=== PATIENT | female | born 1985 | race Two or more races ===

== ENCOUNTER 2023-03-09 22:09 | Emergency (ER) | payer BC ==
[~2023-03-09] VITALS: Ht 170.2 cm; Wt 124.3 kg
[2023-03-09] MEDS ORDERED: VITAMIN D210 MCG (22:20)
[2023-03-09] MEDS ORDERED: TIROSINT75 MCG PO (22:20)
[2023-03-10 01:55] LABS: PH,URINE 7.5 (5.0-8.0); URINE APPEARANCE Cloudy; URINE BILIRRUBIN Negative (NEGATIVE); URINE COLOR Yellow; URINE GLUCOSE Negative (NEGATIVE); URINE LEUKOCYTE Large; URINE NITRATE Negative; URINE PROTEIN Negative (NEGATIVE); URINE UROBILINOGEN 0.2 E.U./dl
[2023-03-10 01:58] LABS: URINE EPITHELIAL CELLS 63.6 uL (0.0-38.8); URINE RBC 31.7 uL (0.0-20.8); URINE WBC 236.9 uL (0.0-23.2)
[2023-03-10 02:06] LABS: URINE BLOOD TRACES
[2023-03-10 02:21] LABS: HEMATOCRIT 40.2 % (36.0-45.00); HEMOGLOBIN 13.5 g/dL (12.0-15.00); MEAN CELL VOLUME 88.6 fL (80.00-100.00); MEAN CORPUSCULAR HEMOGLOBIN 29.8 pg (27.00-32.0); MEAN CORPUSCULAR HGB CONC 33.6 g/dl (32.0-36.0); PLATELET COUNT 312 K/uL (150-450); RED BLOOD COUNT 4.54 M/uL (4.00-6.00); RED CELL DISTRIBUTION WIDTH 13.1 % (11.5-14.5)
[2023-03-10 02:31] LABS: INR 1.09; PARTIAL THROMBOPLASTIN TIME 32.1 SECONDS (22.0-34.0); PROTHROMBIN TIME 11.4 SECONDS (9.0-11.5)
[2023-03-10 02:36] LABS: ALBUMIN 3.8 gm/dL (3.4-5.0); ALKALINE PHOSPHATASE 73 U/L (50-136); ALT/SGPT 38 U/L (12-78); AMYLASE 43 U/L (25-115); ANION GAP 12 (10.0-20.0); AST/SGOT 18 U/L (15-37); BILIRUBIN TOTAL 0.36 mg/dL (0.3-1.2); BILIRUBIN,CONJUGATED < 0.10 mg/dL (0.0-0.2); BILIRUBIN,UNCONJUGATED 0.26 mg/dL (0.0-0.6); BLOOD UREA NITROGEN 10 mg/dL (7-18); BUN CREA RATIO 17 (7.0-25.0); CALCIUM 9.2 mg/dL (8.5-10.1); CARBON DIOXIDE 24 mEq/L (21-32); CHLORIDE 102 mmol/L (98-107); GFR 113.76; GLOBULINA 3.6 G/DL (2.4-3.5); GLUCOSE FASTING 111 mg/dL (65-100); LIPASE 16 U/L (13-75); OSMOLALITY SERUM 268 MOSM/KG (275-295); SODIUM 134 mmol/L (136-145); TOTAL PROTEIN 7.4 gm/dL (6.4-8.2)
[2023-03-10] MEDS ORDERED: PEPCID40 MG PO (04:23)
[2023-03-10] MEDS ORDERED: LEVSIN/SL0.125 MG SL (04:23)
[2023-03-10] MEDS ORDERED: ONDANSETRON ODT4 MG PO (04:23)
[2023-03-10] MEDS ORDERED: LEVOFLOXACIN500 MG PO (04:25)
== END 2023-03-10 04:28 ==
LOC: ER 22:10
PROVIDERS: General Practice
DX: R10.13 Epigastric pain (principal); Z88.0 Allergy status to penicillin; Z88.8 Allergy status to other drugs, medicaments and biological substances; R10.11 Right upper quadrant pain; K80.20 Calculus of gallbladder without cholecystitis without obstruction